=== PATIENT | female | born 1985 | race Asian ===

== ENCOUNTER 2022-02-09 23:57 | Inpatient (IN) | payer MEDICAID, OTHER, SELFPAY ==
[2022-02-10] MEDS ORDERED: Lidocaine 1% (PF) 30 ML VIAL SC PRN ×2 (00:45→09:38)
[2022-02-10] MEDS ORDERED: NS w/ Oxytocin 30 units 500 ML IV SCH ×3 (00:45→09:45)
[2022-02-10] MEDS ORDERED: hydrALAZINE 20 MG/ML VIAL SLOW IVP PRN ×2 (00:48→10:55)
[2022-02-10] MEDS ORDERED: Ondansetron PF 4 MG/2 ML Vial IVP PRN (00:48)
[2022-02-10 00:50] VITALS: BMI 27.6
[2022-02-10 01:38] LABS: Hemoglobin 9.7 g/dL (12.0-15.5); Mean Corpuscular HGB CONC 35.5 g/dL (32.0-36.0); Mean Corpuscular Hemoglobin 31.4 pg (27.0-33.0); Mean Corpuscular Volume 88.3 fl (81.6-98.3); Mean Platelet Volume 10.7 fl (7.4-10.4); Platelet Count 182 10x3/uL (150-450); RBC Distribution Width 13.7 % (11.5-14.5); Red Blood Cell (RBC) Count 3.09 10x6/uL (3.90-5.03); White Blood Cell (WBC) Count 9.6 10x3/uL (3.5-10.5)
[2022-02-10 02:13] LABS: SARS-CoV-2 NAA Rapid Test Not Detected (NotDetected)
[2022-02-10 02:13] LABS: Syphilis Antibody Nonreactive (Nonreactive); Syphilis Antibody Index 0.03 S/CO (<1.00 Non-Reactive)
[2022-02-10 02:15] LABS: HBSAg Index 0.14 S/CO (0-0.99); Hep B Surf Ag Non-Reactive S/CO (NonReactive)
[2022-02-10] MEDS ORDERED: Butorphanol Tartrate 1 MG/ML VIAL ONE ×2 (08:27→10:39)
[2022-02-10] MEDS ORDERED: Ibuprofen 800 MG TAB PO PRN (09:38)
[2022-02-10] MEDS ORDERED: Methylergonovine 0.2 MG/ML VIAL IM PRN (09:38)
[2022-02-10] MEDS ORDERED: Diphenoxylate HCl/Atropine Tablet PO PRN (09:38)
[2022-02-10] MEDS ORDERED: Misoprostol 200 MCG TAB PR PRN (09:38)
[2022-02-10] MEDS ORDERED: Carboprost 250 MCG/ML AMP IM PRN (09:38)
[2022-02-10] MEDS ORDERED: Misoprostol 100 MCG TAB VAG SCH (09:45)
[2022-02-10] MEDS ORDERED: Benzocaine-Menthol 82.5 ML CAN TOP PRN (10:55)
[2022-02-10] MEDS ORDERED: Preparation H Ointment 28 GM TUBE PR PRN (10:55)
[2022-02-10] MEDS ORDERED: traMADol HCl 50 MG TAB PO PRN (10:55)
[2022-02-10] MEDS ORDERED: diphenhydrAMINE 25 MG CAP PO PRN (10:55)
[2022-02-10] MEDS ORDERED: Bisacodyl 10 MG SUPP PR PRN (10:55)
[2022-02-10] MEDS ORDERED: Butorphanol Tartrate 1 MG/ML VIAL SLOW IVP PRN (11:06)
[2022-02-10] MEDS: Ibuprofen 800 MG TAB PO SCH ×2 (14:29→22:13)
[2022-02-10 14:35] LABS: Hemoglobin 9.1 g/dL (12.0-15.5); Mean Corpuscular HGB CONC 35.3 g/dL (32.0-36.0); Mean Corpuscular Hemoglobin 31.5 pg (27.0-33.0); Mean Corpuscular Volume 89.3 fl (81.6-98.3); Mean Platelet Volume 11.9 fl (7.4-10.4); Platelet Count 414 10x3/uL (150-450); RBC Distribution Width 13.6 % (11.5-14.5); Red Blood Cell (RBC) Count 2.89 10x6/uL (3.90-5.03); White Blood Cell (WBC) Count 18.7 10x3/uL (3.5-10.5)
[2022-02-10] MEDS: Ferrous Sulfate 325 MG TAB PO SCH (18:25)
[2022-02-10] MEDS ORDERED: Docusate Calcium (SURFAK) 240 MG CAP PO SCH (21:00)
[2022-02-10] MEDS: Docusate 100 MG CAP PO SCH (22:13)
[2022-02-11] MEDS: Ibuprofen 800 MG TAB PO SCH ×2 (05:21→13:42)
[2022-02-11 07:44] VITALS: BP 103/55; TEMP 98.9
[2022-02-11] MEDS: Docusate 100 MG CAP PO SCH (08:05)
[2022-02-11] MEDS: Ferrous Sulfate 325 MG TAB PO SCH (08:05)
[2022-02-11] MEDS ORDERED: Prenatal Vitamin 1 TAB PO SCH (09:00)
[2022-02-11] MEDS ORDERED: Milk Of Magnesia 30 ML UDCUP PO SCH (09:00)
[2022-02-11] MEDS ORDERED: Boostrix 0.5 ML (Tdap) VIAL (>/=7 yrs of age) IM ONE (10:55)
== END 2022-02-11 17:35 | disposition home or self-care (01) | DRG 768 ==
LOC: CSHLD/OP 23:57 → CSHLD 02-10 00:26 → CSHPED 02-10 12:45 → UNDODISIN 02-11 12:35
PROVIDERS: ADMIT Obstetrics & Gynecology; ATTEND Obstetrics & Gynecology
PROC: 10E0XZZ Delivery of Products of Conception, External Approach (ICD-10-PCS; principal; 2022-02-11)
PROC: 0DQR0ZZ Repair Anal Sphincter, Open Approach (ICD-10-PCS; 2022-02-11)
DX: O70.20 Third degree perineal laceration during delivery, unspecified (principal); Z37.0 Single live birth; Z3A.38 38 weeks gestation of pregnancy
CPT/HCPCS: 36415; 85027; 86780; 86850; 86900; 86901; 87340; 99285; J0595; J2590; U0002